=== PATIENT | female | born 1995 ===

== ENCOUNTER 2016-07-20 20:55 | Emergency (ER) | payer MEDICAID ==
--- NOTE | 2016-07-21 13:05 | ER ---
ADMIT: 07/20/2016 RM/LOC: ER [facility] MR#: [id number] [facility] [address] [place], [place] [id number] [address] [place] [address] Emergency Room Report SEX: F AGE: 21 : 1995 DATE: 07/20/2016 The patient is a 21-year-old female, with no past medical history, is 1, para 0, who came to the ER with chief complaint of small bloody show that she noticed today. The patient denied passage of tissue or passage of clot. The patient also complains of very mild suprapubic pain, which does not increase with palpation. The patient states her last menstrual period was on May 24 and according to that date, the patient is 8 weeks . The patient states she had 2 positive tests at home. In the ER, the patient was in no pain or distress. The patient was calm and oriented and alert. Lungs were clear. Conjunctiva was normal. Abdomen was soft. Normal heart sounds. In the pelvic exam, there were mild blood streaks around cervix without any active bleeding and without any pooling of blood or clots. External os was closed. In the digital exam, the internal os was closed too. Beta-hCG quant was 527. Urine was negative for infection. Blood group was A negative. Bedside ultrasound by the dialysis patient care technician was suggestive of gestational sac without any yolk sac compatible with 5 to 7 days. At this stage, there is no obvious cardiac activity. The patient is stable and in no pain or distress. The patient is closely followed up, as appointment with [facility]. The patient was discharged to home with return precautions, handout for threatened , advised to follow up with the primary care doctor and Clinic. The patient agreed with the plan and was discharged to home. Lorenzo Cormier MD/ mert VIVAR: 07/21/2016 00:17:21 JOB #: [id number] CC: Joseph Handy MD, Attending Physician Reid Diaz MD, Family Physician
== END 2016-07-21 00:31 | disposition home or self-care (01) ==
LOC: ER 20:55 → EDBD 20:55 → ER 07-21 00:31
DX: O20.0 Threatened abortion (principal)

== ENCOUNTER 2016-07-21 18:20 | Emergency (ER) | payer MEDICAID ==
--- NOTE | 2016-07-22 19:21 | ER ---
ADMIT: 07/21/2016 RM/LOC: ER [facility] MR#: [id number] [facility] [address] [place] [id number] [address] [place] [address] Emergency Room Report SEX: F AGE: 21 : 1995 DATE: 07/21/2016 HISTORY OF PRESENT ILLNESS: Patient is a 21-year-old female, 1, para 0, who came to the ER with chief complaint of vaginal bleeding. The patient states she had vaginal spotting since yesterday. Per LMP, which is April 24, patient should be 8 weeks, but per ultrasound yesterday, the patient is 5 days to 7-day , and yesterday's ultrasound, there were no yolk sac or pole. Yesterday, the os was closed, and the patient was discharged to home with return precautions, and the urine was also negative, and the patient was advised to follow up with the primary doctor and care. Working diagnosis was threatened . The patient states today she noticed some passage of tissue and light vaginal bleeding, which was very smaller than mensuration, more like spotting. The patient denied any abdominal pain. PHYSICAL EXAMINATION: GENERAL: The patient was in no pain or distress. CHEST: Normal exam. ABDOMEN: Soft. The patient had few 3-4 mL of dark blood in the vault. There was a small clot in the cervical os. There was no obvious active bleeding. External os was open. Internal os was not palpated all the way. LABORATORY DATA: Yesterday, the patient had beta hCG quant of 520, which decreased to 378. The high possibility of miscarriage was discussed with the patient. Patient is right now at no pain or distress, and she was informed of the miscarriage diagnosis and was discharged to home with followup with the primary care. The patient's blood group was negative, which was checked yesterday. There is no need for RhoGAM. FINAL DIAGNOSIS: Miscarriage. Lorenzo Cormier MD/ mert JOB #: [id number] CC: Jay Pace MD, Attending Physician UNKNOWN, Family Physician
== END 2016-07-21 20:30 | disposition home or self-care (01) ==
LOC: ER 18:20
DX: O03.9 Complete or unspecified spontaneous abortion without complication (principal)